=== PATIENT | male | born 1945 | race Caucasian/White ===

== ENCOUNTER 2016-12-10 08:50 | Emergency (ER) | payer OTHER, MEDICARE ==
[~2016-12-10] VITALS: Ht 172.7 cm; Wt 119.7 kg
[~2016-12-10 08:50] MED LIST: AZOPT10 ML OPH; CLOBETASOL PROP59 M1; COMBIGAN EYE DRO5 ML OPH; ENBREL50 MG/1 M1; HYDROCHLOROTHIA25 M1 PO; KETOROLAC TROMET5 ML OPH; LOSARTAN POTASS50 M1 PO; LUMIGAN2.5 ML OPH; MEDICAL MARIJUANA; NAPROSYN500 M1 PO; PERCOCET 10-321 EACH PO; TAMSULOSIN HCL0.4 M1 PO; TYLENOL WITH C1 EACH PO; XALATAN2.5 ML OPH
--- NOTE | 2016-12-10 09:01 | ED GI/GU/ABDOMINAL COMPLAINT ---
History of Present Illness General Chief Complaint: Abdominal Pain/Flank Pain Stated Complaint: KIDNEY PAIN PER PT, PAIN W/URINATION Source: patient Exam Limitations: no limitations Allergies Coded Allergies: Penicillins (Severe, VOMITING 12/10/16) acetazolamide (Severe, VOMITING 12/10/16) Triage Note: PT TO ED FOR "KIDNEY PAIN THAT STARTED WEDNESDAY", L FLANK WORSE THAN RIGHT. STABBING CHEST PAIN THAT STARTED A WEEK AGO, PAIN IS INTERMITTENT, CENTRAL ABD PAIN PER PT. PT REPORTS FEELING OFF BALANCE. REPORTS SLIGHT SOB, O2 SAT 99% ON RA. Triage Nurses Notes Reviewed? yes HPI: Mr Guo is a 71-year-old gentleman with past medical history of hypertension, BPH, hyperlipidemia, and acute coronary syndrome who presented to the emergency department on 12/10/2016 complaining of intermittent left-sided flank pain and stating that he feels toxic. Patient reports that pain is 10 out of 10 in severity. At the time of clinical encounter the patient states his pain is currently more manageable and is currently comfortable. Patient reports that his symptoms originally began at the beginning of the week, 72 hours prior to admission. Pain was initially bilateral in nature however 24 hours prior to admission the patient endorses the pain has now migrated to the left. Patient also endorses a period of chest pain which has subsequently resolved. He also reports feeling Short of breath. He denies any nausea, vomiting, fever or chills. Patient denies any history of stones. Patient's follows up with Dr. Suh as an outpatient. (LEESA SCOTT,[facility]) Vital Signs & Intake/Output Vital Signs & Intake/Output Vital Signs Date Time Temp Pulse Resp B/P B/P Pulse O2 O2 Flow FiO2 Mean Ox Delivery Rate 12/10 1404 96.6 84 18 145/65 99 Room Air 12/10 1140 66 18 145/70 97 Room Air 12/10 0934 98 Room Air 12/10 0854 97.2 71 15 143/78 99 Room Air Room Air Reconcile Medications Brimonidine Tartrate/Timolol (Combigan Eye Drops) 5 ML DROPS 1 DRP OPH DAILY EYE (Reported) Brinzolamide (Azopt) 10 ML DROPS.SUSP 1 GTT OPH BID EYE (Reported) Clobetasol Propionate 59 ML SPRAY 1 SPRAY UNKNOWN (Reported) Etanercept (Enbrel) 50 MG/1 ML PEN.INJCTR 1 INJ UNKNOWN (Reported) Finasteride 5 MG TABLET 1 TAB PO DAILY KIDNEY STONES (Reported) Hydrochlorothiazide 25 MG TABLET 1 TAB PO DAILY WATER PILL (Reported) Latanoprost (Xalatan) 2.5 ML DROPS 1 GTT OPH QPM EYE (Reported) Lisdexamfetamine Dimesylate (Vyvanse) 50 MG TAB.CHEW 1 TAB PO DAILY WEIGHT LOSS (Reported) Losartan Potassium 50 MG TABLET 1 TAB PO DAILY HEART (Reported) [MEDICAL MARIJUANA] (Reported) Tamsulosin HCl 0.4 MG CAP.ER.24H 1 CAP PO DAILY PROSTATE (Reported) (BRYCE SCOTT,ANTHONY Tellez) Past History Travel History Traveled to [place] past 21 day No Medical History Neurological: NONE EENT: glaucoma Cardiovascular: hypertension, [place] MARCH 2016 Respiratory: obstructive sleep apnea Gastrointestinal: NONE Hepatic: NONE Renal: NONE Musculoskeletal: meniscus tear left knee Psychiatric: NONE Endocrine: NONE Blood Disorders: NONE Cancer(s): NONE YEAST DISTILLER/Reproductive: NONE Surgical History Surgical History: knee surgery Psychosocial History What is your primary language Maltese Tobacco Use: Quit >30 days ago ETOH Use: denies use Illicit Drug Use: denies illicit drug use Family History Hx Contributory? No (VANI LANDERS MD) Medical History Any Pertinent Medical History? see below for history (BRYCE SCOTT,ANTHONY Tellez) Review of Systems Review of Systems Constitutional: Reports: weakness. Denies: chills, diaphoresis, fever, malaise. EENTM: Denies: blurred vision, double vision, visual changes, eye pain. Respiratory: Reports: short of breath. Denies: cough, hemoptysis, orthopnea, sputum production, stridor. Cardiovascular: Reports: chest pain, edema. Denies: orthopena, palpitations, peripheral edema. GI: Denies: abdominal pain, bloating, constipation, diarrhea, distention, bowel incontinence, melena, bloody stool, changes in stool, vomiting. Genitourinary: Reports: dysuria, pain. Denies: discharge, frequency, hematuria, hesitation, nocturia, urgency. Musculoskeletal: Reports: muscle pain, muscle stiffness. Denies: back pain, gout, joint pain, joint swelling. Skin: Denies: cysts, change in skin color, change in hair/nails, dryness, jaundice, lesions. (VANI LANDERS MD) Physical Exam Physical Exam General Appearance: well developed/nourished, no apparent distress, alert Head: atraumatic Eyes: Bilateral: PERRL, EOMI, normal inspection. Ears, Nose, Throat, Mouth: hearing grossly normal Neck: normal inspection Respiratory: normal breath sounds, chest non-tender, no respiratory distress Cardiovascular: regular rate/rhythm Peripheral Pulses: 4+ dorsalis pedis (R), 4+ dorsalis pedis (L) Gastrointestinal: normal bowel sounds, soft, non-tender, distention, CVA tenderness Left. 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 Back: normal inspection Extremities: normal range of motion Neurologic/Psych: awake, alert, oriented x 3 (LEESA SCOTT,VANI) Core Measures ACS in differential dx? No Severe Sepsis Present: No Septic Shock Present: No (BRYCE SCOTT,ANTHONY Tellez) Progress Differential Diagnosis: prostatitis, pyelonephritis, ureterolithiasis, urethritis Diagnostic Imaging: Viewed by Me: CT Scan. Initial ED EKG: none (LEESA SCOTT,VANI) Plan of Care: Orders Procedure Date/time Status Heart Healthy Diet 12/10 L Active CULTURE,URINE 12/10 1208 Active URINALYSIS 12/10 1011 Complete TROPONIN LEVEL 12/10 0858 Complete COMPREHENSIVE METABOLIC PANEL 12/10 0858 Complete CBC WITHOUT DIFFERENTIAL 12/10 0858 Complete EKG 12/10 0858 Active Laboratory Tests 12/10/16 1015: Urinalysis LIGHT H, Urine Color STRAW, Urine Clarity HAZY H, Urine pH 6.5, Ur Specific Harvey 1.010, Urine Protein NEG, Urine Ketones NEG, Urine Nitrite NEG, Urine Bilirubin NEG, Urine Urobilinogen 0.2, Ur Leukocyte Esterase MOD H, Ur Microscopic SEDIMENT EXAMINED, Urine RBC 10-15 H, Urine WBC 25-50 H, Urine Hemoglobin SMALL H, Urine Glucose NEG 12/10/16 0925: Anion Gap 9, Estimated GFR 28 L, BUN/Creatinine Ratio 13.5, Glucose 191 H, Calcium 8.7, Total Bilirubin 1.0, AST 26, ALT 44, Alkaline Phosphatase 53, Troponin I 0.01, Total Protein 6.5, Albumin 3.7, Globulin 2.8, Albumin/Globulin Ratio 1.3, CBC w Diff NO MAN DIFF REQ, RBC 4.32 L, MCV 90.6, MCH 31.2 H, RDW 12.7, MPV 8.7, Gran % 74.0, Lymphocytes % 15.8 L, Monocytes % 8.4, Eosinophils % 1.4, Basophils % 0.4, Absolute Granulocytes 8.4 H, Absolute Lymphocytes 1.8, Absolute Monocytes 1.0 H, Absolute Eosinophils 0.2, Absolute Basophils 0, PUBS MCHC 34.5 Microbiology 12/10 1208 URINE ROUT: Urine Culture - ORD Departure Departure Disposition: HOME OR SELF CARE Condition: Stable Clinical Impression Primary Impression: Hydronephrosis Secondary Impressions: Hydronephrosis due to obstruction of ureter Referrals: JONATHAN BARBER MD (PCP/Family) Additional Instructions: Upon discharge please inform your primary care physician of this visit to the emergency department. Please continue to remain hydrated. It is imperative that you follow-up with the urologist on 12/14/2016. The urologist Dr Alvarenga ([phone]), is aware of your clinical condition and you will be placed on schedule for treatment under his care. We have provided you with a referral. Should you experience any worsening fever, chills, nausea, vomiting or worsening pain please come to the emergency department immediately. Departure Forms: Customer Survey General Discharge Information Comments Called the office of Dr Alvarenga to confirm patient it on schedule. (LEESA SCOTT,VANI) PA/VAULT CUSTODIAN Co-Sign Statement Statement: ED Attending supervision documentation- [] I saw and evaluated the patient. I have also reviewed all the pertinent lab results and diagnostic results. I agree with the findings and the plan of care as documented in the PA's/VAULT CUSTODIAN's documentation. [] I have reviewed the ED Record and agree with the PA's/VAULT CUSTODIAN's documentation. [] Additions or exceptions (if any) to the PAs/VAULT CUSTODIAN's note and plan are summarized below: [] Resident Co-Sign Statement Statement: ED Attending supervision documentation- [X] I saw and evaluated the patient. I have also reviewed all the pertinent lab results and diagnostic results. I agree with the findings and the plan of care as documented in the Resident's documentation. [] I have reviewed the ED Record and agree with the Resident's documentation. [] Additions or exceptions (if any) to the Resident's note and plan are summarized below: [] (BRYCE SCOTT,ANTHONY Tellez) (ANTHONY WU MD) [] I have reviewed the ED Record and agree with the Resident's documentation. [] Additions or exceptions (if any) to the Resident's note and plan are summarized below: [] (BRYCE SCOTT,ANTHONY Tellez)
[2016-12-10 09:45] LABS: ABSOLUTE BASOPHIL COUNT 0 /CUMM (0.0-0.2); ABSOLUTE EOSINOPHIL COUNT 0.2 /CUMM (0.0-0.7); ABSOLUTE GRANULOCYTE CT 8.4 /CUMM (1.4-6.5); ABSOLUTE LYMPH COUNT 1.8 /CUMM (1.2-3.4); BASOPHIL % 0.4 % (0.0-2.0); EOSINOPHIL % 1.4 % (0-5); HEMATOCRIT 39.1 % (42-52); MEAN CORPUSCULAR HGB 31.2 PG (27.0-31.0); MEAN CORPUSCULAR HGB CONC 34.5 G/DL (33.0-37.0); MEAN CORPUSCULAR VOLUME 90.6 FL (80.0-94.0); MEAN PLATELET VOLUME 8.7 FL (7.4-10.4); PLATELET COUNT 247 /CUMM (130-400); RBC DISTRIBUTION WIDTH 12.7 % (11.5-14.5); RED BLOOD CELL CT 4.32 /CUMM (4.70-6.10); WHITE BLOOD CELL COUNT 11.4 /CUMM (4.8-10.8)
--- NOTE | 2016-12-10 11:10 | CT SCAN REPORT ---
EXAMINATION: CT ABDOMEN AND PELVIS WITHOUT CONTRAST CLINICAL INFORMATION: 71-year-old male with left flank pain and dysuria. COMPARISON: None TECHNIQUE: Multidetector volumetric imaging was performed from the superior aspect of the liver through the pubic symphysis. Sagittal and coronal reformatted images were obtained on the technologist's workstation. DLP: 1350.96 mGy-cm FINDINGS: LUNG BASES: Mild dependent atelectasis is noted at the lung bases. No pericardial effusion. LIVER, GALLBLADDER, AND BILIARY TREE: The liver is normal in size and shape. Decreased attenuation is seen throughout the liver suggesting underlying hepatic steatosis. No focal hepatic lesion or biliary ductal dilatation is present. The gallbladder is unremarkable with no evidence of radiopaque gallstones, gallbladder wall thickening, or obvious pericholecystic inflammatory changes. PANCREAS: Unremarkable. SPLEEN: Unremarkable. ADRENAL GLANDS: Unremarkable. KIDNEYS AND URETERS: The kidneys are normal in size, shape, and attenuation. There is mild left hydroureteronephrosis secondary to a 0.60 x 1.0 cm calculus within the distal left ureter, just proximal to the ureterovesicular junction (image 76, series 2 and image 73, series 602). Mild to moderate periureteral stranding is noted. No intrarenal calculi are present. There is mild bilateral perinephric stranding. BLADDER: Partially distended. Mild, nonspecific circumferential bladder wall thickening. GASTROINTESTINAL TRACT: There is no bowel obstruction, free intraperitoneal air or fluid. Appendix is within normal limits. Moderate amount of stool seen throughout the colon. ABDOMINAL WALL: There is a small fat-containing umbilical hernia. LYMPH NODES: No mesenteric, retroperitoneal or pelvic lymphadenopathy. A left anterior pelvic sidewall lymph node is mildly prominent measuring 8 mm in short axis, possibly reactive in nature. VASCULAR: Nonaneurysmal abdominal aorta containing mild atherosclerotic calcification. PELVIC VISCERA: Prostate gland measures 5.6 x 4.4 cm and contains a few coarse calcifications. Seminal vesicles are grossly unremarkable. No significant pelvic free fluid. OSSEOUS STRUCTURES: There are no aggressive osseous lesions. Degenerative changes are seen throughout the spine. IMPRESSION: 1. Mild left hydronephrosis secondary to a 0.6 x 1.0 cm calculus within the distal left ureter, just proximal to the ureterovesicular junction. Mild to moderate periureteral stranding is noted. Clinical and laboratory correlation is recommended to exclude an associated infection. 2. Hepatic steatosis. 3. Other findings as described.
[2016-12-10 14:04] VITALS: BP 145/65
[2016-12-10] MEDS ORDERED: PERCOCET 5-3251 EACH PO (14:12)
[2016-12-14] MEDS ORDERED: FINASTERIDE5 M1 PO (14:59)
[2016-12-14] MEDS ORDERED: VYVANSE PO (14:59)
== END 2016-12-10 14:57 ==
LOC: ERH 08:50
PROVIDERS: Emergency Medicine
DX: N13.1 Hydronephrosis with ureteral stricture, not elsewhere classified (principal)
CPT/HCPCS: 87184; 74176; 81001; 87086; 87147; 93005; 93010; 96361; 96374; J1885

== ENCOUNTER → 2016-12-16 | Day surgery (SDC) | payer OTHER, MEDICARE ==
[~2016-12-16] VITALS: Ht 172.7 cm; Wt 119.7 kg
[~2016-12-16] MED LIST changes: +FINASTERIDE5 M1 PO; +PERCOCET 5-3251 EACH PO; +VYVANSE PO
--- NOTE | 2016-12-16 13:49 | Operative Report ---
Operative/Inv Procedure Report Surgery Date: 12/16/16 Name of Procedure: Cystoscopy, L ureteroscopy and L ureteral stent insertion Pre-Operative Diagnosis: L distal ureteral stone Post-Operative Diagnosis: L hydroureter. No stone seen Estimated Blood Loss: scant Surgeon/Photo Equipment Technician: Aman SCOTT,LUCI Liz Anesthesia: laryngeal mask airway Drains: 6 fr, 24 cm L double J ureteral stent Specimens: none Complications: none Condition: stable Operative Indication: This patient presented to the ER several days ago with L flank pain. CT scan showed a 10 x 6 mm stone in the L distal ureter with mild L hydroureteronephrosis. He requested intervention for the stone. His pain resolved and a KUB did not show the stone. A discussion was had with the patient about proceed with L ureteroscopy to definitively determine if the stone had past vs not proceeding with the procedure and getting a CT scan of the abd and pelvis in the near future. He opted to proceed with L ureteroscopy. Operative/Procedure Note Note: The patient was taken to the cystoscopy room identified. He was placed in the supine position on the cystoscopy table. A timeout was executed appropriately with the patient awake. Gen. anesthesia was induced via LMA. He was placed in dorsal lithotomy position and prepped and draped in usual fashion for cystoscopy. A surgical pause was executed appropriately. Fluoroscopy image was taken with a marker on the left side of the abdomen to confirm the correct side of surgery as well as a correct orientation of the fluoroscopy image. 22 Qatari cystoscope was brought under direct vision the 30 lens. There was mild stenosis of the urethral meatus. There was a mild urethral stricture in the area of the bulb. The scope was negotiated through this area without much difficulty. There was definite trilobar prostatic hypertrophy with partial bladder outlet obstruction. The bladder appeared normal. Left ureteral orifice was identified. A guidewire was placed through the cystoscope and the left ureter at the level of the kidney. The cystoscope was removed. The short rigid ureteroscope was advanced through the urethra into the bladder into the left ureter. The ureteroscope was advanced up the level of L3. No stone was seen. The ureter was dilated above the very distal ureter. This was indicative of a recently passed stone. Ureteroscopy was repeated and again no stone was seen. The ureteroscope was removed. The cystoscope was backloaded onto the guidewire. Under visual fluoroscopic control a 24 cm 6 Qatari left double-J ureteral stent was placed. The proximal and the stent was coiled in the upper pole calyx with this point was called in the bladder on fluoroscopy. A long suture was left attached this point of the stent exiting the urethra. (Patient tolerated the procedure well as was the recovery room in stable condition. Findings: L hydroureter, likely due to recently passed stone Discharge Disposition: PACU CC: GEORGE SCOTT,LUCI Liz
--- NOTE | 2016-12-17 16:58 | RADIOLOGY REPORT ---
EXAMINATION: C-ARM FLUOROSCOPY ASSISTANCE AT THIS TIME OF CYSTOSCOPY AND LEFT-SIDED URETERIC STENT PLACEMENT. CLINICAL INDICATION: 71-year-old male for cystoscopy and left-sided ureteric stent placement. COMPARISON: None TECHNIQUE: 2 spot radiographs were obtained at the time of the procedure. Fluoroscopy time: 0.2 minutes. FINDINGS: Spot radiographs were obtained at the time of the procedure shows contrast within the decompressed left renal collecting system and visualized part of the left ureter. There is a uretic stent identified. Contrast is also noted within the urinary bladder. Full procedural details will be dictated by Dr. Alvarenga. IMPRESSION: Spot radiographs were obtained at the time of the left-sided internal stent placement. Full procedural details will be dictated by Dr. Alvarenga.
== END ==
LOC: STS 03:59
DX: N20.1 Calculus of ureter (principal); N13.4 Hydroureter; N35.9 Urethral stricture, unspecified; N40.0 Benign prostatic hyperplasia without lower urinary tract symptoms; I25.2 Old myocardial infarction
CPT/HCPCS: 74000; C2617; J2250